=== PATIENT | female | born 1990 | race American Indian/Alaskan Native ===

== ENCOUNTER 2017-03-06 14:04 | Inpatient (IN) | payer MEDICAID ==
--- NOTE | 2017-03-06 16:15 | Emergency Department Report ---
ED Medical Clearance HPI - General Chief complaint: Medical Clearance Stated complaint: TESTING FOR MENINGITIS Time Seen by Provider: 03/06/17 16:11 Source: patient Mode of arrival: Ambulatory - History of Present Illness Initial comments: 26-year-old female past medical history obesity presents for need for prophylactic antibiosis against bacterial meningitis. Patient states that her boyfriend is currently hospitalized in the emergency room for bacterial meningitis. Patient presents for evaluation and request for prophylaxis. Patient states that she has exchange bodily fluid via kissing with her boyfriend within the last 24 hours. Patient is awake alert and oriented 3 not in acute distress denies fever or chills but does complain of worsening headache. Denies photophobia or phonophobia is nontoxic appearing denies any paresthesias. Immediately after learning that the patient had a positive exposure to a patient who is very ill with bacterial meningitis I alerted the attending and the charge nurse. I requested that the patient remained in her examination room until further notice. MD Complaint: medical clearance request Onset/Timin -: Last night Associated Symptoms: headaches Allergies/Adverse reactions: Allergies Allergy/AdvReac Type Severity Reaction Status Date / Time metronidazole [From Flagyl] AdvReac Rash Verified 03/06/17 15:17 ED Review of Systems ROS: Stated complaint: TESTING FOR MENINGITIS Other details as noted in HPI Constitutional: denies: chills, fever Eyes: denies: eye pain, eye discharge, vision change ENT: denies: ear pain, throat pain Respiratory: denies: cough, shortness of breath, wheezing Cardiovascular: denies: chest pain, palpitations Endocrine: no symptoms reported Gastrointestinal: denies: abdominal pain, nausea, diarrhea Genitourinary: denies: urgency, dysuria, discharge Musculoskeletal: denies: back pain, joint swelling, arthralgia Skin: denies: rash, lesions Neurological: denies: headache, weakness, paresthesias Psychiatric: denies: anxiety, depression Hematological/Lymphatic: denies: easy bleeding, easy bruising ED Past Medical Hx - Past Medical History Previous Medical History?: No - Surgical History Past Surgical History?: No - Social History Smoking Status: Never Smoker Substance Use Type: None ED Physical Exam - General Limitations: No Limitations General appearance: alert, in no apparent distress - Head Head exam: Present: atraumatic, normocephalic - Eye Eye exam: Present: normal appearance, PERRL, EOMI - ENT ENT exam: Present: mucous membranes moist - Neck Neck exam: Present: normal inspection - Respiratory Respiratory exam: Present: normal lung sounds bilaterally. Absent: respiratory distress - Cardiovascular Cardiovascular Exam: Present: regular rate, normal rhythm. Absent: systolic murmur, diastolic murmur, rubs, gallop - GI/Abdominal GI/Abdominal exam: Present: soft, normal bowel sounds - Extremities Exam Extremities exam: Present: normal inspection - Back Exam Back exam: Present: normal inspection - Neurological Exam Neurological exam: Present: alert, oriented X3 - Psychiatric Psychiatric exam: Present: normal affect, normal mood - Skin Skin exam: Present: warm, dry, intact, normal color. Absent: rash ED Course Vital Signs 03/06/17 15:15 Temperature 99.4 F Pulse Rate 82 Respiratory 16 Rate Blood Pressure 114/66 O2 Sat by Pulse 98 Oximetry ED Medical Decision Making - Medical Decision Making A/P: Prophylaxis against bacterial meningitis 1-patient educated on subject and given CDC guideline recommendations on prophylaxis for bacterial meningitis 2-1 dose of IM 250 mg ceftriaxone given as acceptable regimen for prophylaxis as per CDC guidelines https://www.cdc.gov/mmwr/preview/mmwrhtml/01855856.htm 3-I advised patient to follow up with his primary doctor ED Disposition Is pt being admited?: No Does the pt Need Aspirin: No Condition: Stable Referrals: DEBBIE ROSALES MD [Staff Physician] - 3-5 Days [facility] [Outside] - 3-5 Days
[2017-03-06] MEDS ORDERED: NACL 0.9% 1000 ML 1,000 ML IV ONE (17:29)
[2017-03-06] MEDS ORDERED: MORPHINE IV ONE (17:29)
[2017-03-06] MEDS ORDERED: DECADRON IV ONE (17:29)
[2017-03-06] MEDS ORDERED: ZOFRAN IV ONE (17:29)
[2017-03-06] MEDS ORDERED: VANCOMYCIN/NS 1 GM/250 ML 1 GM/250 ML BAG IV ONE (17:32)
[2017-03-06] MEDS ORDERED: ROCEPHIN/NS 1 GM/50 ML 1 GM/50 ML BAG IV ONE ×2 (17:32→23:48)
--- NOTE | 2017-03-06 17:40 | Emergency Department Report ---
ED Headache HPI - General Chief Complaint: Medical Clearance Stated Complaint: TESTING FOR MENINGITIS Time Seen by Provider: 03/06/17 16:11 - History of Present Illness Initial Comments: 26-year-old female with no significant medical problem presents for need for prophylactic antibiosis against bacterial meningitis. Patient states that her boyfriend is currently hospitalized in the emergency room for bacterial meningitis. Patient states that she has exchange bodily fluid via kissing with her boyfriend within the last 24 hours. Patient is awake alert and oriented 3 not in acute distress denies fever or chills but does complain of worsening headache. Denies photophobia or neck pain. Quality: moderate Head Injury Location: global Recent Head Trauma: no recent headache/trauma, occasional headaches Associated Symptoms: fever/chills (low grade). denies: denies symptoms, confusion, fatigue, facial pain, flushing, loss of consciousness, nausea/ vomiting, nasal congestion, nasal drainage, numbness in legs/feet, rash, seizures, sinus infection, stiff neck, vision changes, weakness, other Allergies/Adverse Reactions: Allergies metronidazole [From Flagyl] Adverse Reaction (Verified 03/06/17 15:17) Rash ED Review of Systems ROS: Stated complaint: TESTING FOR MENINGITIS Other details as noted in HPI Comment: All other systems reviewed and negative Constitutional: denies: chills, fever Eyes: denies: eye pain, eye discharge, vision change ENT: denies: ear pain, throat pain Respiratory: denies: cough, shortness of breath, wheezing Cardiovascular: denies: chest pain, palpitations Endocrine: no symptoms reported Gastrointestinal: denies: abdominal pain, nausea, diarrhea Genitourinary: denies: urgency, dysuria, discharge Musculoskeletal: denies: back pain, joint swelling, arthralgia Skin: denies: rash, lesions Neurological: headache. denies: weakness, paresthesias Psychiatric: denies: anxiety, depression Hematological/Lymphatic: denies: easy bleeding, easy bruising ED Past Medical Hx - Past Medical History Previous Medical History?: No - Surgical History Past Surgical History?: No - Social History Smoking Status: Never Smoker Substance Use Type: None ED Physical Exam - General Limitations: No Limitations General appearance: alert, in no apparent distress - Head Head exam: Present: atraumatic, normocephalic - Eye Eye exam: Present: normal appearance, PERRL, EOMI. Absent: scleral icterus, conjunctival injection, periorbital swelling, periorbital tenderness Pupils: Present: normal accommodation - ENT ENT exam: Present: normal exam, normal orophraynx, mucous membranes moist, TM's normal bilaterally, normal external ear exam - Neck Neck exam: Present: normal inspection, full ROM. Absent: tenderness, meningismus, lymphadenopathy, thyromegaly - Respiratory Respiratory exam: Present: normal lung sounds bilaterally. Absent: respiratory distress, wheezes, rales, rhonchi, chest wall tenderness, accessory muscle use, decreased breath sounds, prolonged expiratory - Cardiovascular Cardiovascular Exam: Present: regular rate, normal rhythm, normal heart sounds - GI/Abdominal GI/Abdominal exam: Present: soft, normal bowel sounds. Absent: distended, tenderness, guarding, rebound, rigid - Extremities Exam Extremities exam: Present: normal inspection. Absent: tenderness, normal capillary refill - Back Exam Back exam: Present: normal inspection. Absent: CVA tenderness (R), CVA tenderness (L) - Neurological Exam Neurological exam: Present: alert, oriented X3, CN II-XII intact, normal gait - Skin Skin exam: Present: warm, intact, normal color ED Course Vital Signs 03/06/17 03/06/17 03/06/17 15:15 18:56 19:00 Temperature 99.4 F Pulse Rate 82 66 Respiratory 16 11 L Rate Blood Pressure 114/66 110/53 O2 Sat by Pulse 98 97 100 Oximetry 03/06/17 03/06/17 03/06/17 19:05 19:08 19:16 Temperature 98.6 F Pulse Rate 71 Respiratory 18 11 L Rate Blood Pressure 110/53 O2 Sat by Pulse 99 100 Oximetry 03/06/17 03/06/17 03/06/17 19:29 19:30 19:46 Temperature Pulse Rate 71 84 Respiratory 18 13 14 Rate Blood Pressure 116/77 116/77 O2 Sat by Pulse 99 99 Oximetry - Reevaluation(s) Reevaluation #1: 03/06/17 21:31 Patient stated that she is better. - Lumbar Puncture Consent Obtained: verbal consent, emergent situation Time Out Performed: Yes Indication for Procedure: headache, fever work up Patient Position: Sitting Upright/Leaning F Skin Prep: Povidone-Iodine 1%, 0.5%Chlorhexidine/alcohol Local Anesthetic Used: Lidocaine 2% Amount of anesthesia used (mls): 5 Spinal Needle Gauge: 20G Spinal Needle Length: 3.5in Interspace Used: L4-L5 Fluid Initially Obtained: clear Complications: none Patient Tolerated Procedure: well, no complications ED Medical Decision Making - Lab Data Result diagrams: 03/06/17 18:57 03/06/17 18:57 - Radiology Data Radiology results: image reviewed Chest x-ray was acute abnormalities - Medical Decision Making Since patient presented with headache and a fever and a recent contact with somebody was already been diagnosed with meningitis, patient received 1 g of ceftriaxone 1 g of vancomycin and 10 mg of Decadron. I discussed with Dr. Malathi Mcnally to admit to her service. Critical care attestation.: If time is entered above; I have spent that time in minutes in the direct care of this critically ill patient, excluding procedure time. ED Disposition Clinical Impression: Headache, Meningitis Disposition: OP ADMIT IP TO THIS HOSP Is pt being admited?: Yes Condition: Stable Referrals: [facility] [Outside] - 3-5 Days DEBBIE ROSALES MD [Staff Physician] - 3-5 Days
--- NOTE | 2017-03-06 17:49 | Emergency Department Report ---
Chief Complaint: Medical Clearance Stated Complaint: TESTING FOR MENINGITIS Time Seen by Provider: 03/06/17 16:11 - HPI History of Present Illness: 26-year-old female past medical history obesity presents for need for prophylactic antibiosis against bacterial meningitis. Patient states that her boyfriend is currently hospitalized in the emergency room for bacterial meningitis. Patient presents for evaluation and request for prophylaxis. Patient states that she has exchange bodily fluid via kissing with her boyfriend within the last 24 hours. Patient is awake alert and oriented 3 not in acute distress denies fever or chills but does complain of worsening headache. Denies photophobia or phonophobia is nontoxic appearing denies any paresthesias. Immediately after learning that the patient had a positive exposure to a patient who is very ill with bacterial meningitis I alerted the attending and the charge nurse. I requested that the patient remained in her examination room until further notice. - ROS Review of Systems: headache, exposure to bacterial meningitis via kissing boyfriend - Exam Vital Signs: Vital Signs 03/06/17 15:15 Temperature 99.4 F Pulse Rate 82 Respiratory 16 Rate Blood Pressure 114/66 O2 Sat by Pulse 98 Oximetry Physical Exam: AAOx3, NAD, notoxic appearing MSE screening note: Focused history and physical exam performed. Due to findings the following was ordered: Screening Assessment/Plan/Differential Dx: Exposure to bacterial meningitis, headache 1- This initial assessment/diagnostic orders/clinical plan/ treatment(s) is/are subject to change based on pt's health status, clinical progression and re- assessment by fellow clinical providers in the ED. Further treatment and workup at subsequent clinical provers discretion. Patient/guardians urged not to elope from ED as their condition may be serious if not clinically assessed and managed. 2-I immediately informed charge nurse Ashley that this patient may have been exposed to bacterial meningitis within the last 24 hours and is now exhibiting a headache., Patient brought to room in the main ED for isolation and further management and diagnosis ED Disposition for MSE Condition: Stable Referrals: [facility] [Outside] - 3-5 Days DEBBIE ROSALES MD [Staff Physician] - 3-5 Days
[2017-03-06 19:49] LABS: Basophils % (Auto) 0.2 % (0.0-1.8); Eosinophils % (Auto) 1.7 % (0.0-4.3); Hematocrit 35.5 % (30.3-42.9); Hemoglobin 11.3 gm/dl (10.1-14.3); Mean Corpuscular HGB Conc 32 % (30-34); Mean Corpuscular Volume 75 fl (79-97); Platelet Count 309 K/mm3 (140-440); Red Blood Count 4.75 M/mm3 (3.65-5.03); Red Cell Distribution Width 18.7 % (13.2-15.2); White Blood Count 11.6 K/mm3 (4.5-11.0)
[2017-03-06 19:51] LABS: Mean Corpuscular Hemoglobin 24 pg (28-32)
[2017-03-06 19:59] LABS: Partial Thromboplastin Time 28.2 Sec. (24.2-36.6)
[2017-03-06 20:06] LABS: BUN/Creatinine Ratio 10; Blood Urea Nitrogen 6 mg/dL (7-17); Calcium 8.7 mg/dL (8.4-10.2); Carbon Dioxide 22 mmol/L (22-30); Glucose 80 mg/dL (65-100)
[2017-03-06 20:07] LABS: Alanine Aminotransferase 15 units/L (7-56); Albumin 3.9 g/dL (3.9-5); Albumin/Globulin Ratio 0.9 %; Alkaline Phosphatase 90 units/L (35-129); Anion Gap 18 mmol/L; Chloride 100.4 mmol/L (98-107); Potassium 3.4 mmol/L (3.6-5.0); Sodium 137 mmol/L (137-145); Total Protein 8.1 g/dL (6.3-8.2)
[2017-03-06 20:27] LABS: Bacteria,Urine 1+ /HPF (Negative); Bilirubin,Urine NEG (Negative); Blood,Urine MOD (Negative); Ketones,Urine NEG (Negative); Leukocyte Esterase,Urine NEG (Negative); Mucus,Urine 3+ /HPF; Nitrite,Urine NEG (Negative); Urobilinogen,Urine < 2.0 mg/dL (<2.0)
[2017-03-06] MEDS ORDERED: DULCOLAX PR PRN (22:05)
[2017-03-06] MEDS ORDERED: TYLENOL PO PRN (22:05)
[2017-03-06] MEDS ORDERED: MILK OF MAGNESIA PO PRN (22:05)
--- NOTE | 2017-03-06 22:14 | History and Physical Report ---
History of Present Illness Date of examination: 03/06/17 History of present illness: 26 year old woman with no medical problems complained of headache while visiting her boyfriend in the hospital, he is being hospitalized for meningitis. She was noted to have low grade fever. Her headache is in the left frontal area, dull, constant since this morning, intensity 5/10, no radiation, she cannot identify exacerbating factors. A lumbar puncture was attempted but was unsuccessful, there was not enough fluid for assessment. She had close contact with boyfriend. The patient was started on rocephin and vancomycin emperically. Review Of Systems: Constitutional: no weight loss Ears, eyes, nose, mouth and throat: no nasal congestion, no nasal discharge, no sinus pressure, blurry vision, diplopia Neck: No neck pain or rigidity. Cardiovascular: chest pain, orthopnea, palpitations Respiratory: No shortness of breath, cough Gastrointestinal: abdominal pain, hematochezia Genitourinary : no dysuria, frequency , hematuria Musculoskeletal: no muscle ache Integumentary: no rash, no pruritis Neurological: no parathesias, focal weakness Endocrine: no cold or heat intolerance, no polyuria or polydipsia Hematologic/Lymphatic: no easy bruising, no easy bleeding, no gland swelling Allergic/Immunologic: no urticaria, no angioedema. PAST MEDICAL HISTORY:None PAST SURGICAL HISTORY:None FAMILY HISTORY:hypertension SOCIAL HISTORY:Denies alcohol, tobacco, drugs Medications and Allergies Allergies Allergy/AdvReac Type Severity Reaction Status Date / Time metronidazole [From Flagyl] AdvReac Rash Verified 03/06/17 15:17 Home Medications Medication Instructions Recorded Confirmed Last Taken Type No Known Home Medications [No 03/07/17 03/07/17 Unknown History Reported Home Medications] Active Meds: Active Medications Acetaminophen (Tylenol) 650 mg PO Q4H PRN PRN Reason: Pain MILD(1-3)/Fever >100.5/BATISTA Bisacodyl (Dulcolax) 10 mg OH QDAY PRN PRN Reason: Constipation unrelieved by MOM Enoxaparin Sodium (Lovenox) 30 mg SUB-Q QDAY RHIANNON Ceftriaxone Sodium (Rocephin/Ns 1 Gm/50 Ml) 1 gm in 50 mls @ 100 mls/hr IV Q24HR RHIANNON PRN Reason: Protocol Magnesium Hydroxide (Milk Of Magnesia) 30 ml PO Q4H PRN PRN Reason: Constipation Ondansetron HCl (Zofran) 4 mg IV Q8H PRN PRN Reason: N/V unrelieved by Reglan Oxycodone/Acetaminophen (Percocet 5/325) 1 tab PO Q4H PRN PRN Reason: Pain, Moderate (4-6) Exam - Physical Exam Narrative exam: Gen. appearance: Patient lying in bed in no acute distress HEENT: Normocephalic/atraumatic, pupils equal round reactive to light, extra alkaline movement intact, no scleral icterus, no JVD or thyromegaly or nodule, neck is supple, mucous membrane moist, no erythema or exudate Heart: S1-S2, regular rate and rhythm Lungs: Clear to auscultation bilateral breathing comfortable Abdomen: Positive bowel sounds, nontender, nondistended, no organomegaly Extremities: No edema, cyanosis, clubbing Neuro:: Oriented 3 , cranial nerves II-12 intact, speech, motor intact Skin: No rash, nodules, warm dry - Constitutional Vitals: Temp Pulse Resp BP Pulse Ox 98.6 F 55 L 14 112/65 99 03/06/17 19:08 03/06/17 20:00 03/06/17 21:46 03/06/17 21:46 03/06/17 20:16 Results - Labs CBC & Chem 7: 03/06/17 18:57 03/06/17 18:57 Labs: Abnormal lab results 03/06/17 03/06/17 Range/Units 18:57 18:57 WBC 11.6 H (4.5-11.0) K/mm3 MCV 75 L (79-97) fl MCH 24 L (28-32) pg RDW 18.7 H (13.2-15.2) % Seg Neutrophils % 73.0 H (40.0-70.0) % Seg Neutrophils # 8.5 H (1.8-7.7) K/mm3 Potassium 3.4 L (3.6-5.0) mmol/L BUN 6 L (7-17) mg/dL Creatinine 0.6 L (0.7-1.2) mg/dL - Imaging and Cardiology Chest x-ray: image reviewed Assessment and Plan Assessment Possible Meningitis Plan Admit to medicine Continue IV rocephin, s/p vancomycin Follow cultures, consult IR for spinal tap Start percocet, dvt prophalaxis
[2017-03-07] MEDS ORDERED: ROCEPHIN/NS 1 GM/50 ML 1 GM/50 ML BAG IV ONE (00:17)
[2017-03-07] MEDS ORDERED: PERCOCET 5/325 ONE (00:19)
[2017-03-07] MEDS: PERCOCET 5/325 PO PRN ×5 (00:21→20:09)
[2017-03-07] MEDS ORDERED: ROCEPHIN/NS 1 GM/50 ML 1 GM/50 ML BAG IV SCH ×2 (06:00→10:00)
[2017-03-07 08:29] LABS: BUN/Creatinine Ratio 12; Blood Urea Nitrogen 7 mg/dL (7-17); Calcium 8.8 mg/dL (8.4-10.2)
[2017-03-07 09:05] LABS: Anion Gap 14 mmol/L; Carbon Dioxide 25 mmol/L (22-30); Chloride 106.4 mmol/L (98-107); Glucose 113 mg/dL (65-100); Potassium 4.6 mmol/L (3.6-5.0); Sodium 141 mmol/L (137-145)
[2017-03-07 09:22] LABS: Basophils % (Auto) 0.1 % (0.0-1.8); Hematocrit 36.1 % (30.3-42.9); Hemoglobin 11.3 gm/dl (10.1-14.3); Mean Corpuscular HGB Conc 31 % (30-34); Mean Corpuscular Volume 75 fl (79-97); Platelet Count 324 K/mm3 (140-440); Red Blood Count 4.79 M/mm3 (3.65-5.03); Red Cell Distribution Width 18.7 % (13.2-15.2); White Blood Count 17.2 K/mm3 (4.5-11.0)
[2017-03-07 09:27] LABS: Mean Corpuscular Hemoglobin 24 pg (28-32)
--- NOTE | 2017-03-07 09:57 | XRay Report ---
PORTABLE CHEST: Meningitis; origin of infection? An AP portable view of the chest demonstrates a normal cardiac contour considering the limits of this technique. The lungs are clear with no evidence of infiltrate, fluid or failure. IMPRESSION: Normal portable chest.
[2017-03-07] MEDS ORDERED: ROCEPHIN/NS 2 GM/100 ML 2 GM/100 ML BAG IV SCH (10:00)
[2017-03-07] MEDS ORDERED: LOVENOX SUB-Q SCH (10:00)
[2017-03-07] MEDS: LOVENOX SUB-Q SCH (10:05)
--- NOTE | 2017-03-07 13:53 | Progress Note ---
Assessment and Plan Assessment and plan: Headache, subjective fever, leukocytosis Doesn't fulfill SIRS criteria Close contact with meningitis patient Patient admitted to rule out meningitis IR consulted for lumbar puncture ID consulted for recommendation - On isolation - Patient is empirically on IV ceftriaxone DVT prophylaxis Disposition - Continue inpatient care History Interval history: Patient was seen and evaluated this morning, patient denied fever, headache is getting better. Hospitalist Physical - Physical exam Narrative exam: Not in cardiopulmonary distress. The patient is obese. Vital signs as documented. Head exam is unremarkable. No scleral icterus . Neck is without jugular venous distension, thyromegaly, or carotid bruits. Lungs are clear to auscultation. Cardiac exam reveals regular rate and Rhythm. First and second heart sounds normal. No murmurs, rubs or gallops. Abdominal exam reveals normal bowel sounds, no masses, no organomegaly and no aortic enlargement. Extremities are nonedematous and both femoral and pedal pulses are normal. PROVIDER RELATIONS COORDINATOR: Negative for Brudzinski's sign and Kernig sign. - Constitutional Vitals: Temp Pulse Resp BP Pulse Ox 97.6 F 66 18 116/65 100 03/07/17 08:19 03/07/17 08:19 03/07/17 08:19 03/07/17 08:19 03/07/17 08:19 Results - Labs CBC & Chem 7: 03/07/17 07:53 03/07/17 07:53 Labs: Laboratory Last Values WBC 17.2 K/mm3 (4.5-11.0) H 03/07/17 07:53 RBC 4.79 M/mm3 (3.65-5.03) 03/07/17 07:53 Hgb 11.3 gm/dl (10.1-14.3) 03/07/17 07:53 Hct 36.1 % (30.3-42.9) 03/07/17 07:53 MCV 75 fl (79-97) L 03/07/17 07:53 MCH 24 pg (28-32) L 03/07/17 07:53 MCHC 31 % (30-34) 03/07/17 07:53 RDW 18.7 % (13.2-15.2) H 03/07/17 07:53 Plt Count 324 K/mm3 (140-440) 03/07/17 07:53 Lymph % (Auto) 7.5 % (13.4-35.0) L 03/07/17 07:53 [place] % (Auto) 3.0 % (0.0-7.3) 03/07/17 07:53 Eos % (Auto) 0.0 % (0.0-4.3) 03/07/17 07:53 Baso % (Auto) 0.1 % (0.0-1.8) 03/07/17 07:53 Lymph # 1.3 K/mm3 (1.2-5.4) 03/07/17 07:53 [place] # 0.5 K/mm3 (0.0-0.8) 03/07/17 07:53 Eos # 0.0 K/mm3 (0.0-0.4) 03/07/17 07:53 Baso # 0.0 K/mm3 (0.0-0.1) 03/07/17 07:53 Seg Neutrophils % 89.4 % (40.0-70.0) H 03/07/17 07:53 Seg Neutrophils # 15.4 K/mm3 (1.8-7.7) H 03/07/17 07:53 PT 13.7 Sec. (12.2-14.9) 03/06/17 18:57 INR 1.00 (0.87-1.13) 03/06/17 18:57 APTT 28.2 Sec. (24.2-36.6) 03/06/17 18:57 Sodium 141 mmol/L (137-145) 03/07/17 07:53 Potassium 4.6 mmol/L (3.6-5.0) D 03/07/17 07:53 Chloride 106.4 mmol/L (98-107) 03/07/17 07:53 Carbon Dioxide 25 mmol/L (22-30) 03/07/17 07:53 Anion Gap 14 mmol/L 03/07/17 07:53 BUN 7 mg/dL (7-17) 03/07/17 07:53 Creatinine 0.6 mg/dL (0.7-1.2) L 03/07/17 07:53 Estimated GFR > 60 ml/min 03/07/17 07:53 BUN/Creatinine Ratio 12 % 03/07/17 07:53 Glucose 113 mg/dL (65-100) H 03/07/17 07:53 Calcium 8.8 mg/dL (8.4-10.2) 03/07/17 07:53 Total Bilirubin 0.30 mg/dL (0.1-1.2) 03/06/17 18:57 AST 21 units/L (5-40) 03/06/17 18:57 ALT 15 units/L (7-56) 03/06/17 18:57 Alkaline Phosphatase 90 units/L (35-129) 03/06/17 18:57 Total Protein 8.1 g/dL (6.3-8.2) 03/06/17 18:57 Albumin 3.9 g/dL (3.9-5) 03/06/17 18:57 Albumin/Globulin Ratio 0.9 % 03/06/17 18:57 Urine Color Yellow (Yellow) 03/06/17 19:05 Urine Turbidity Clear (Clear) 03/06/17 19:05 Urine pH 5.0 (5.0-7.0) 03/06/17 19:05 Ur Specific [place] 1.026 (1.003-1.030) 03/06/17 19:05 Urine Protein 100 mg/dl mg/dL (Negative) 03/06/17 19:05 Urine Glucose (UA) Neg mg/dL (Negative) 03/06/17 19:05 Urine Ketones Neg mg/dL (Negative) 03/06/17 19:05 Urine Blood Mod (Negative) 03/06/17 19:05 Urine Nitrite Neg (Negative) 03/06/17 19:05 Urine Bilirubin Neg (Negative) 03/06/17 19:05 Urine Urobilinogen < 2.0 mg/dL (<2.0) 03/06/17 19:05 Ur Leukocyte Esterase Neg (Negative) 03/06/17 19:05 Urine WBC (Auto) 3.0 /HPF (0.0-6.0) 03/06/17 19:05 Urine RBC (Auto) 9.0 /HPF (0.0-6.0) 03/06/17 19:05 U Epithel Cells (Auto) 2.0 /HPF (0-13.0) 03/06/17 19:05 Urine Bacteria (Auto) 1+ /HPF (Negative) 03/06/17 19:05 Urine Mucus 3+ /HPF 03/06/17 19:05 Leukocytosis, with left shift
--- NOTE | 2017-03-07 14:07 | Consultation ---
History of Present Illness - Reason for Consult Consult date: 03/07/17 exposure to meningitis Requesting physician: BECKY DUENAS - History of Present Illness 26 years old female without known medical history; admitted on 03/06/17 due to frontal headache, 6 out of 10, no radiation. Patient denies fever, chills, nausea, vomiting. Patient denies any neck stiffness or photophobia. Patient's boyfriend was admitted to the hospital yesterday and found to have acute bacterial meningitis due to a Streptococcus pneumoniae. Patient is concerned she had same infection. Denies any recent sick contact. Denies recent travels. In the emergency room, temperature was 99.4, heart rate 86, blood pressure 114/ 60. White blood cell count 11.6. Creatinine 0.6. UA negative. Microbiology: Blood cultures: 03/06 ngtd Urine cultures: Current Antimicrobials: Ceftriaxone 03/06 Past History Past Medical History: No medical history Past Surgical History: No surgical history Social history: denies: smoking, prescription drug abuse, IV drug use, full code Medications and Allergies Allergies Allergy/AdvReac Type Severity Reaction Status Date / Time metronidazole [From Flagyl] AdvReac Rash Verified 03/06/17 15:17 Home Medications Medication Instructions Recorded Confirmed Last Taken Type No Known Home Medications [No 03/07/17 03/07/17 Unknown History Reported Home Medications] Active Meds: Active Medications Acetaminophen (Tylenol) 650 mg PO Q4H PRN PRN Reason: Pain MILD(1-3)/Fever >100.5/BATISTA Bisacodyl (Dulcolax) 10 mg [place] QDAY PRN PRN Reason: Constipation unrelieved by MOM Enoxaparin Sodium (Lovenox) 40 mg SUB-Q QDAY@1000 RHIANNON Last Admin: 03/07/17 10:05 Dose: 40 mg Ceftriaxone Sodium (Rocephin/Ns 2 Gm/100 Ml) 2 gm in 100 mls @ 200 mls/hr IV Q12H RHIANNON Magnesium Hydroxide (Milk Of Magnesia) 30 ml PO Q4H PRN PRN Reason: Constipation Ondansetron HCl (Zofran) 4 mg IV Q8H PRN PRN Reason: N/V unrelieved by Reglan Oxycodone/Acetaminophen (Percocet 5/325) 1 tab PO Q4H PRN PRN Reason: Pain, Moderate (4-6) Last Admin: 03/07/17 12:14 Dose: 1 tab Review of Systems All systems: negative (headaches) Physical Examination - Physical Exam Narrative exam: General appearance: Alert in NAD, conversant Eyes: anicteric sclerae, moist conjunctivae; no lid-lag; PERRLA HENT: Atraumatic; oropharynx clear with moist mucous membranes and no mucosal ulcerations/no oral thrush; normal hard and soft palate. Normal external ears. Neck: Trachea midline; supple, no thyromegaly or lymphadenopathy Lungs: CTA, with normal respiratory effort and no intercostal retractions CV: RRR, no murmurs Abdomen: Soft, non-tender; no masses or hepatosplenomegaly Extremities: No peripheral edema or extremity lymphadenopathy Skin: Normal temperature, turgor and texture; no rash, ulcers or subcutaneous nodules Psych: Appropriate affect, alert and oriented to person, place and time. Neuro: alert and oriented x 3. Moving all extermities Lines: No CVL / PICC - Constitutional Vitals: Vital Signs Temp Pulse Resp BP Pulse Ox 97.6 F 66 18 116/65 100 03/07/17 08:19 03/07/17 08:19 03/07/17 08:19 03/07/17 08:19 03/07/17 08:19 Temperature -Last 24 Hours Temperature 97.6 F Temperature 97.3 F Results - Labs CBC & Chem 7: 03/07/17 07:53 03/07/17 07:53 Labs: Abnormal lab results 03/07/17 03/07/17 Range/Units 07:53 07:53 WBC 17.2 H (4.5-11.0) K/mm3 MCV 75 L (79-97) fl MCH 24 L (28-32) pg RDW 18.7 H (13.2-15.2) % Lymph % (Auto) 7.5 L (13.4-35.0) % Seg Neutrophils % 89.4 H (40.0-70.0) % Seg Neutrophils # 15.4 H (1.8-7.7) K/mm3 Creatinine 0.6 L (0.7-1.2) mg/dL Glucose 113 H (65-100) mg/dL Assessment and Plan Assessment: 1) Headache: with recent exposure to boyfriend with likely Strep penumoniae. No recent fever or chills. I doubt meningitis. Plan: -agree with lumbar puncture, send CSF specimen for Gram stain and culture, glucose, protein, VDRL, HSV-PCR, cryptococcal antigen -continue ceftriaxone 2 g IV q 12h -droplet precautions -if CSF is normal ok to D/C Thank you Dr Duenas for your consultation, will follow up with you. Christina Huggins MD Infectious Diseases Specialist [facility] ([facility]) M [phone] O [phone]
[2017-03-07 16:33] LABS: Glucose,CSF 69 mg/dL
[2017-03-07 16:35] LABS: Appearance,CSF Clear
--- NOTE | 2017-03-07 16:35 | Fluoroscopy Report ---
Lumbar puncture with fluoroscopic guidance. History: Meningitis. Procedure: The patient's skin surface overlying the lumbar region was prepped and draped using sterile technique. Local anesthetic was injected into the skin. Using fluoroscopic guidance, a 20-gauge spinal needle was placed into the subarachnoid space at the L2-3 level. The appearance of CSF is clear, but only 2 cc of CSF was collected. The needle position was changed, and the patient was also changed in position to the decubitus position. No additional fluid was obtained. At this point, the patient requested that the procedure be terminated. Therefore, I did not repeat the procedure at a different level.
[2017-03-07] MEDS: ROCEPHIN/NS 2 GM/100 ML 2 GM/100 ML BAG IV SCH (17:48)
[2017-03-07 18:01] LABS: White Blood Cell,CSF 8 /mm3 (1-10)
[2017-03-07 18:02] LABS: Basophils CSF 0 %
[2017-03-07 18:04] LABS: CSF Diff Status Complete
[2017-03-07] MEDS: ZOFRAN IV PRN (21:27)
[2017-03-08] MEDS: PERCOCET 5/325 PO PRN ×2 (05:24→09:40)
[2017-03-08] MEDS: ROCEPHIN/NS 2 GM/100 ML 2 GM/100 ML BAG IV SCH (05:24)
[2017-03-08 05:45] LABS: Basophils % (Auto) 0.2 % (0.0-1.8); Eosinophils % (Auto) 0.4 % (0.0-4.3); Hematocrit 33.5 % (30.3-42.9); Hemoglobin 10.5 gm/dl (10.1-14.3); Mean Corpuscular HGB Conc 32 % (30-34); Mean Corpuscular Volume 74 fl (79-97); Platelet Count 296 K/mm3 (140-440); Red Blood Count 4.51 M/mm3 (3.65-5.03); Red Cell Distribution Width 18.7 % (13.2-15.2); White Blood Count 20.1 K/mm3 (4.5-11.0)
[2017-03-08 05:47] LABS: Mean Corpuscular Hemoglobin 23 pg (28-32)
[2017-03-08] MEDS: ZOFRAN IV PRN (05:57)
[2017-03-08 05:58] LABS: Anion Gap 14 mmol/L; BUN/Creatinine Ratio 13; Blood Urea Nitrogen 10 mg/dL (7-17); Calcium 8.4 mg/dL (8.4-10.2); Carbon Dioxide 27 mmol/L (22-30); Chloride 103.4 mmol/L (98-107); Glucose 92 mg/dL (65-100); Potassium 3.9 mmol/L (3.6-5.0); Sodium 140 mmol/L (137-145)
--- NOTE | 2017-03-08 08:32 | Discharge Summary ---
Providers - Providers Date of Admission: 03/06/17 22:05 Attending physician: BECKY DUENAS MD 03/07/17 07:04 Consult to Interventional Radiology [CONS] Routine Consulting Provider: RILEY ZELAYA Reason For Exam: lp Place consult to:: DR. ZELAYA Notified:: DR. ZELAYA Phone number called:: IN HOUSE Was contact made?: Yes If yes, spoke with:: EWA Time called:: 09:26 03/07/17 10:42 Consult to Physician [CONS] Routine Consulting Provider: CALIXTO RIOS Reason For Exam: meningitis Place consult to:: ID/JASMINE GUEVARA Notified:: DR. FERRARO Phone number called:: IN HOUSE Was contact made?: Yes If yes, spoke with:: DR. FERRARO Time called:: 10:45 Comment:: JOHANNA AWARE Hospitalization Reason for admission: suspected meningitis Condition: Stable Pertinent studies: CSF analysis negative for bacterial meningitis Procedures: Lumbar puncture Hospital course: 26 year old woman with no medical problems complained of headache while visiting her boyfriend in the hospital, he is being hospitalized for meningitis. She was noted to have low grade fever. Her headache is in the left frontal area, dull, constant since this morning, intensity 5/10, no radiation, she cannot identify exacerbating factors. A lumbar puncture was attempted but was unsuccessful, there was not enough fluid for assessment. She had close contact with boyfriend. The patient was started on rocephin and vancomycin emperically. Patient is admitted to the floor and IR was consulted and did LP and CSF was negative for bacteria meningitis. Given her low-grade fever, headache, contact her boyfriend was Streptococcus pneumoniae meningitis, leukocytosis she was continued with IV Rocephin until the CSF came back negative. ID was consulted and agreed with the management plan. Hence the patient took IV Rocephin she doesn't need any prophylaxis at the time of discharge. She is to have leukocytosis at the time of discharge and I have advised her to follow-up with her primary care physician in 5-7 days and patient verbalized she understood the plan. Patient is hemodynamically stable at the time of discharge. Disposition: - TO HOME OR SELFCARE Time spent for discharge: 31 minutes - Discharge Diagnoses (1) Headache Status: Acute Qualifiers: Headache type: H Headache chronicity pattern: acute headache Intractability: I (2) Meningitis Status: Ruled-out Core Measure Documentation - Palliative Care Palliative Care/ Comfort Measures: Not Applicable - Core Measures Any of the following diagnoses?: none Exam - Physical Exam Narrative exam: Not in cardiopulmonary distress. The patient is obese. Vital signs as documented. Head exam is unremarkable. No scleral icterus . Neck is without jugular venous distension, thyromegaly, or carotid bruits. Lungs are clear to auscultation. Cardiac exam reveals regular rate and Rhythm. First and second heart sounds normal. No murmurs, rubs or gallops. Abdominal exam reveals normal bowel sounds, no masses, no organomegaly and no aortic enlargement. Extremities are nonedematous and both femoral and pedal pulses are normal. SMASHER: Negative for Brudzinski's sign and Kernig sign. - Constitutional Vitals: Temp Pulse Resp BP Pulse Ox 97.8 F 60 16 109/53 100 03/08/17 07:49 03/08/17 07:49 03/08/17 07:49 03/08/17 07:49 03/08/17 07:49 Plan Activity: no restrictions Weight Bearing Status: Full Weight Bearing Diet: regular Follow up with: [facility] [Outside] - 3-5 Days DEBBIE ROSALES MD [Staff Physician] - 3-5 Days (please repeat CBC patient has leukocytosis, may be reactive.)
[2017-03-08] MEDS: LOVENOX SUB-Q SCH (09:39)
--- NOTE | 2017-03-08 10:38 | Progress Note ---
Assessment and Plan Assessment: 1) Headache: with recent exposure to boyfriend with likely Strep pneumoniae. -CSF WBC 8, Prot 26, gluc 69. NO evidence of meningitis 2) Leukocytosis: ? unclear etiology ? reactive from multiple LP attempts ? bronchitis. Plan: -f/u with PCP to recheck CBC in 5-7 days since she is currently asymptomatic will sign off Thank you Dr Wu for your consultation, will follow up with you. Christina Huggins MD Infectious Diseases Specialist [facility] ([facility]) M [phone] O [phone] Subjective Date of service: 03/08/17 Principal diagnosis: ?meningitis Interval history: Feels good, no headahce, no fever. Minimal cough. Microbiology: Blood cultures: 03/06 ngtd CSF: 03/07 neg Current Antimicrobials: Ceftriaxone 03/06 Objective - Exam Narrative Exam: General appearance: Alert in NAD, conversant Eyes: anicteric sclerae, moist conjunctivae; no lid-lag; PERRLA HENT: Atraumatic; oropharynx clear with moist mucous membranes and no mucosal ulcerations/no oral thrush; normal hard and soft palate. Normal external ears. Neck: Trachea midline; supple, no thyromegaly or lymphadenopathy Lungs: CTA, with normal respiratory effort and no intercostal retractions CV: RRR, no murmurs Abdomen: Soft, non-tender; no masses or hepatosplenomegaly Extremities: No peripheral edema or extremity lymphadenopathy Skin: Normal temperature, turgor and texture; no rash, ulcers or subcutaneous nodules Psych: Appropriate affect, alert and oriented to person, place and time. Neuro: alert and oriented x 3. Moving all extermities Lines: No CVL / PICC - Constitutional Vitals: Vital Signs Temp Pulse Resp BP Pulse Ox 97.8 F 60 16 109/53 100 03/08/17 07:49 03/08/17 07:49 03/08/17 07:49 03/08/17 07:49 03/08/17 07:49 Temperature -Last 24 Hours Temperature 97.8 F Temperature 97.8 F Temperature 97.9 F - Labs CBC & Chem 7: 03/08/17 05:25 03/08/17 05:25 Labs: Abnormal lab results 03/08/17 Range/Units 05:25 WBC 20.1 H (4.5-11.0) K/mm3 MCV 74 L (79-97) fl MCH 23 L (28-32) pg RDW 18.7 H (13.2-15.2) % [place] # 1.0 H (0.0-0.8) K/mm3 Seg Neutrophils % 75.0 H (40.0-70.0) % Seg Neutrophils # 15.0 H (1.8-7.7) K/mm3
[2017-03-08 11:53] VITALS: BP 118/75
== END 2017-03-08 12:10 | disposition home or self-care (01) | DRG 103 ==
LOC: ED 14:04 → 3A 22:05
PROVIDERS: ADMIT Internal Medicine; ATTEND Internal Medicine
PROC: 009U3ZX Drainage of Spinal Canal, Percutaneous Approach, Diagnostic (ICD-10-PCS; principal; 2017-03-07)
PROC: B01B1ZZ Fluoroscopy of Spinal Cord using Low Osmolar Contrast (ICD-10-PCS; 2017-03-07)
DX: R51 Headache (principal); Z88.8 Allergy status to other drugs, medicaments and biological substances; Z82.49 Family history of ischemic heart disease and other diseases of the circulatory system; Z03.89 Encounter for observation for other suspected diseases and conditions ruled out
CPT/HCPCS: 36415; 62270; 71010; 77003; 80048; 80053; 81001; 82947; 84160; 85025; 85610; 85730; 86592; 87040; 87086; 87116; 89051; J0696; J1100; J1650; J2270; J2405; J3370; J7030